=== PATIENT | male | born 1965 | race Caucasian/White ===

== ENCOUNTER 2018-01-15 16:02 | Emergency (ER) | payer OTHER ==
[~2018-01-15] VITALS: Ht 170.2 cm; Wt 101.6 kg
--- NOTE | 2018-01-15 17:52 | RADIOLOGY REPORT ---
EXAMINATION: XR FINGER, LEFT CLINICAL INFORMATION: 52-year-old male presented with nail in the left thumb. COMPARISON: None TECHNIQUE: Multiple frontal and lateral views including crosstable lateral view of the left thumb were obtained. FINDINGS: There is a 4.8 cm maximum dimension radiopaque nail seen mostly localized within the soft tissues, however, is inseparable from the palmar surface of the base of the terminal phalanx and the distal head, neck of the proximal phalanx of the left thumb, suggestive of bony involvement. IMPRESSION: 4.8 cm maximum dimension radiopaque single nail is seen mostly localized to the soft tissues, however, shows radiographic features consistent with bony involvement of both the middle and terminal phalanx.
--- NOTE | 2018-01-15 17:56 | ED UPPER/LOWER EXTREMITY COMPL ---
History of Present Illness General Chief Complaint: Hand or Wrist Injury Stated Complaint: PT HAS A NAIL IN LT THUMB Source: patient Exam Limitations: no limitations Vital Signs & Intake/Output Vital Signs & Intake/Output Vital Signs Date Time Temp Pulse Resp B/P B/P Pulse O2 O2 Flow FiO2 Mean Ox Delivery Rate 01/15 2015 96.8 86 18 155/84 99 Room Air 01/15 1823 97.2 85 16 188/115 99 Room Air 01/15 1612 96.5 95 18 97 Room Air ED Intake and Output 01/16 0000 01/15 1200 Intake Total Output Total Balance Patient 224 lb Weight Weight Reported by Patient Measurement Method Allergies Coded Allergies: No Known Allergies (01/15/18) Reconcile Medications Amoxicillin/Potassium Clav (Augmentin 875-125 Tablet) 875 MG-125 MG TABLET 1 TAB PO BID FB IN SOFT TISSUE Oxycodone HCl/Acetaminophen (Percocet 5-325 MG Tablet) 5 MG-325 MG TABLET 1 TAB PO TID PRN PAIN Triage Note: PT TO ER WITH NAIL THROUGH LEFT THUMB, HAPPENED 1 HR AGO. UNSURE OF DATE OF LAST TETANUS INJ, OVER 5 YEARS AGO. PAIN 05/31. UNABLE TO OBTAIN BP IN TRIAGE Triage Nurses Notes Reviewed? yes Onset: Abrupt Duration: constant Timing: single episode today Severity: moderate Severity Numbers: 5 HPI: Patient is a 52-year-old male with a past medical history of hypertension hyperlipidemia and diabetes who presents emergency room stating that while at home working he was using a nail gun nail ricocheted off the piece of wood and struck patient to the left first digit of hand thumb in which she has a through and through retained nail with curvature or patient felt uncomfortable to remove it at home Tetanus is unknown patient is right arm dominant (Teja Salgado) Past History Travel History Traveled to [place] past 21 day No Medical History Any Pertinent Medical History? see below for history Cardiovascular: hypertension, hyperlipidemia Endocrine: diabetes Surgical History Surgical History: non-contributory Psychosocial History What is your primary language Frisian Tobacco Use: Quit >30 days ago Family History Hx Contributory? No (Teja Salgado) Review of Systems Review of Systems Constitutional: Reports: no symptoms. EENTM: Reports: no symptoms. Respiratory: Reports: no symptoms. Cardiovascular: Reports: no symptoms. Gastrointestinal/Abdominal: Reports: no symptoms. Genitourinary: Reports: no symptoms. Musculoskeletal: Reports: see HPI, joint pain. Skin: Reports: see HPI. Neurological/Psychological: Reports: no symptoms. Hematologic/Endocrine: Reports: no symptoms. Immunological: Reports: no symptoms. All Other Systems: Reviewed and Negative (Teja Salgado) Physical Exam Physical Exam General Appearance: no apparent distress, alert, comfortable Head: atraumatic Eyes: Bilateral: normal appearance. Ears, Nose, Throat: hearing grossly normal Neck: normal inspection Cardiovascular/Respiratory: no respiratory distress Peripheral Pulses: 2+ radial (L) Neurologic/Tendon: normal sensation, normal motor functions, normal tendon functions, responds to pain, no evidence tendon injury, no pulse deficit Skin: normal color Diagram Hands Front 1) Noted indwelling nail through the proximal phalanx no active bleeding dermatomes intact capillary refill less than 2 seconds (Teja Salgado) Progress Differential Diagnosis: arterial insufficiency, cellulitis, CHF, compartment syndrome, contusion, dislocation, DVT, fracture, gout, septic arthritis, sprain, tendon injury Plan of Care: Current Medications Sig/Yan Start time Last Medication Dose Stop Time Status Admin Tetanus/Diphtheria 0.5 ML ONCE ONE 01/15 1815 CAN Toxoids Adsorbed 01/15 1816 (Decavac) sterile technique using Betadine I performed digital block to left first digit using 1% lidocaine approximately 7 mL digital block was successful, I was able to remove and cut the distal curved and of the nail then using the proximal and using pliers I retracted the foreign body successfully patient tolerated well then to the puncture wounds I irrigated the wound with sterile water and chlorhexidine then I applied gauze and bacitracin to the region post reduction films indicate fracture in which I applied using orthopedic last a thumb spica splint pre-and post-neurovascular was intact patient was given antibiotic prophylaxis is strongly advised to follow-up with discharge instructions and plan discussed plan with dr. blair who agrees Diagnostic Imaging: Viewed by Me: Radiology Read. Radiology Impression: foreign body seen Comments: PATIENT: YUNG JONES PRESENT AGE: 52 PATIENT ACCOUNT NO: [id number] : 66 LOCATION: [facility] ORDERING PHYSICIAN: Teja GOULD SERVICE DATE: 01/15/18 EXAM TYPE: RAD - XRY-FINGERS, LEFT EXAMINATION: XR FINGER, LEFT CLINICAL INFORMATION: Nail removal. COMPARISON: X-ray from today 4:30 PM. TECHNIQUE: 3 views. FINDINGS: Interval removal of the radiopaque nail. There is articular surface irregularity and mild depression of the distal articular surface of the 1st proximal phalanx, suspicious for a mildly depressed fracture of this region. There is mild spurring at the 1st IP joint. Ossification is seen on the volar aspect of the 1st IP joint, probable ossicle. No definite fractures identified of the 1st distal phalanx. No radiopaque foreign bodies identified in the soft tissues. IMPRESSION: Interval removal of the previously seen radiopaque nail. Findings suspicious for a mildly depressed intra-articular fracture of the distal aspect 1st proximal phalanx. DICTATED BY: Moshe Jett MD DATE/TIME DICTATED:01/15/181857 APARTMENT MAINTENANCE WORKER:MERLE DATE/TIME TRANSCRIBED:01/15/181857 CONFIDENTIAL, DO NOT COPY WITHOUT APPROPRIATE AUTHORIZATION. <Electronically signed in Other Vendor System> SIGNED BY: Moshe Jett MD [id number] PATIENT: YUNG JONES PRESENT AGE: 52 PATIENT ACCOUNT NO: [id number] : 66 LOCATION: [facility] ORDERING PHYSICIAN: Coby GOULD SERVICE DATE: 01/15/18 EXAM TYPE: RAD - XRY-FINGERS, LEFT EXAMINATION: XR FINGER, LEFT CLINICAL INFORMATION: 52-year-old male presented with nail in the left thumb. COMPARISON: None TECHNIQUE: Multiple frontal and lateral views including crosstable lateral view of the left thumb were obtained. FINDINGS: There is a 4.8 cm maximum dimension radiopaque nail seen mostly localized within the soft tissues, however, is inseparable from the palmar surface of the base of the terminal phalanx and the distal head, neck of the proximal phalanx of the left thumb, suggestive of bony involvement. IMPRESSION: 4.8 cm maximum dimension radiopaque single nail is seen mostly localized to the soft tissues, however, shows radiographic features consistent with bony involvement of both the middle and terminal phalanx. DICTATED BY: Dequan Evans MD DATE/TIME DICTATED:01/15/181703 APARTMENT MAINTENANCE WORKER:MERLE DATE/TIME TRANSCRIBED:01/15/181703 CONFIDENTIAL, DO NOT COPY WITHOUT APPROPRIATE AUTHORIZATION. (Teja Salgado) Departure Departure Disposition: HOME OR SELF CARE Condition: Stable Clinical Impression Primary Impression: Thumb fracture Secondary Impressions: Foreign body of thumb, left Referrals: Karen CULP,Edy Patton MD,Issa Cabrera (PCP/Family) Additional Instructions: As discussed in the prescription of Percocet for breakthrough pain, again the prescription of Augmentin as directed to prevent infection, on Wednesday please follow-up with [place] emergency room for recheck of your symptoms and evaluation On Wednesday please follow-up with with either Dr. Jones for further evaluation treatment. Changes the dressings once a day with the extra bandages provided to YOU AND apply bacitracin to the region once a day for the following 4 days then leave the area open to improve healing If symptoms worsen or if you note signs of infection return to the emergency room Departure Forms: Customer Survey General Discharge Information Prescriptions: Current Visit Scripts Amoxicillin/Potassium Clav (Augmentin 875-125 Tablet) 1 TAB PO BID #14 TAB Oxycodone HCl/Acetaminophen (Percocet 5-325 MG Tablet) 1 TAB PO TID PRN PAIN #8 TAB (Teja Salgado) PA/FIRE CREW WORKER Co-Sign Statement Statement: ED Attending supervision documentation- [] I saw and evaluated the patient. I have also reviewed all the pertinent lab results and diagnostic results. I agree with the findings and the plan of care as documented in the PA's/FIRE CREW WORKER's documentation. [x] I have reviewed the ED Record and agree with the PA's/FIRE CREW WORKER's documentation. [] Additions or exceptions (if any) to the PAs/FIRE CREW WORKER's note and plan are summarized below: [] (Page CULP,Zeeshan Vaughan) Procedures Splinting Location: thumb left Manual Alignment Performed: No Hand-Made Type: orthoglass Splint: thumb spica Splint Applied By: splint applied by me Pre-Proc Neuro Vasc Exam: normal Post-Proc Neuro Vasc Exam: normal (Teja Salgado)
[2018-01-15] MEDS ORDERED: AUGMENTIN 875-1 EACH PO (18:21)
[2018-01-15] MEDS ORDERED: PERCOCET 5-3251 EACH PO (18:21)
--- NOTE | 2018-01-15 19:26 | RADIOLOGY REPORT ---
EXAMINATION: XR FINGER, LEFT CLINICAL INFORMATION: Nail removal. COMPARISON: X-ray from today 4:30 PM. TECHNIQUE: 3 views. FINDINGS: Interval removal of the radiopaque nail. There is articular surface irregularity and mild depression of the distal articular surface of the 1st proximal phalanx, suspicious for a mildly depressed fracture of this region. There is mild spurring at the 1st IP joint. Ossification is seen on the volar aspect of the 1st IP joint, probable ossicle. No definite fractures identified of the 1st distal phalanx. No radiopaque foreign bodies identified in the soft tissues. IMPRESSION: Interval removal of the previously seen radiopaque nail. Findings suspicious for a mildly depressed intra-articular fracture of the distal aspect 1st proximal phalanx.
[2018-01-15 20:15] VITALS: BP 155/84
== END 2018-01-15 20:24 ==
LOC: ERH 16:02
DX: S62.512A Displaced fracture of proximal phalanx of left thumb, initial encounter for closed fracture (principal); S60.352A Superficial foreign body of left thumb, initial encounter; W29.4XXA Contact with nail gun, initial encounter; Y92.009 Unspecified place in unspecified non-institutional (private) residence as the place of occurrence of the external cause; Y93.9 Activity, unspecified
CPT/HCPCS: 73140-LT; 90471; 90714